=== PATIENT | female | born 1975 | race American Indian/Alaskan Native ===

== ENCOUNTER 2018-02-07 14:10 | Outpatient (CLI) | payer OTHER ==
--- NOTE | 2018-02-07 16:34 | Mammography Report ---
BILATERAL DIGITAL SCREENING MAMMOGRAM WITH CAD:02/07/18 CLINICAL: Baseline screening. FINDINGS: The breasts are extremely dense which limits the sensitivity of mammography.No mass, architectural distortion or suspicious calcifications. IMPRESSION: No mammographic evidence of malignancy. BI-RADS CATEGORY: 1 -- Negative RECOMMENDATION: Routine mammographic screening in one year. ACR BI-RADS MAMMOGRAPHIC CODES: 0 = Needs additional imaging evaluation; 1 = Negative; 2 = Benign; 3 = Probably benign; 4 = Suspicious; 5 = Malignant; 6 = Known biopsy-proven malignancy COMMENT: 1. Dense breast tissue, i.e., adenosis, fibrocystic changes, etc., may obscure an underlying neoplasm. 2. Approximately 10% of cancers are not detected with mammography. 3. A negative mammography report should not delay biopsy if a clinically suspicious mass is present.
== END 2018-02-07 14:11 | disposition home or self-care (01) ==
LOC: SPVWC 14:10
PROVIDERS: ATTEND Obstetrics & Gynecology
DX: Z12.31 Encounter for screening mammogram for malignant neoplasm of breast (principal)
CPT/HCPCS: 77067

== ENCOUNTER 2019-04-10 23:26 | Outpatient (CLI) | payer OTHER ==
[2019-04-11] MEDS ORDERED: LACTATED RINGERS 1,000 ML IV ONE (00:36)
[2019-04-11 01:01] LABS: Bacteria,Urine 1+ /HPF (Negative); Bilirubin,Urine NEG (Negative); Blood,Urine NEG (Negative); Color,Urine Yellow (Yellow); Mucus,Urine FEW /HPF; Protein,Urine <15 mg/dL mg/dL (Negative); Urobilinogen,Urine < 2.0 mg/dL (<2.0)
[2019-04-11 02:48] VITALS: BP 133/74
== END 2019-04-11 03:15 | disposition home or self-care (01) ==
LOC: TRG 23:26
PROVIDERS: ATTEND Obstetrics & Gynecology
DX: O26.852 Spotting complicating pregnancy, second trimester (principal); Z3A.26 26 weeks gestation of pregnancy
CPT/HCPCS: 81001; 86850; 86900; 86901

== ENCOUNTER 2019-05-28 16:24 | Outpatient (CLI) | payer OTHER ==
--- NOTE | 2019-05-28 18:02 | Magnetic Resonance Report ---
MRI PELVIS WITHOUT CONTRAST INDICATION / CLINICAL INFORMATION: PLACENTIA PREVIA, R/O INVASIVE PLACENTATION. TECHNIQUE: Multiplanar, multisequence series were obtained through the pelvis. COMPARISON: None available. FINDINGS: PLACENTA AND UTERUS EVALUATION: There is a placenta previa that appears to completely or almost compl etely cover the internal os. The placenta is mostly anterior and left lateral. Along the left side of the cervix and lower uterine segment, I am concerned that the placenta is mild ly invading the junctional zone suggesting mild placenta accreta (the finding is not definite due to motion artifact). Specifically, reference images 23 through 28 of sagittal series #10. The study was not optimized for evaluation of the structures there are no gross abnormalities v isualized in the fetus. URINARY BLADDER: No significant abnormality. ADDITIONAL FINDINGS: There is mild dilation of the right renal collecting system and right ureter. SKELETAL SYSTEM: No significant abnormality. IMPRESSION: 1. Near complete or complete placenta previa with possible mild placenta accreta along the left lower uterine segment as described. 2. No gross abnormality of the fetus. Signer Name: Jesus Martinez MD Signed: 05/28/2019 5:58 PM Workstation Name: [id number]
== END 2019-05-28 16:25 | disposition home or self-care (01) ==
LOC: MRI 16:24
PROVIDERS: ATTEND Obstetrics & Gynecology Maternal & Fetal Medicine
DX: O44.03 Complete placenta previa NOS or without hemorrhage, third trimester (principal); Z3A.33 33 weeks gestation of pregnancy
CPT/HCPCS: 72195

== ENCOUNTER 2019-05-31 12:13 | Outpatient (CLI) | payer OTHER ==
[2019-05-31] MEDS ORDERED: BETAMET ACET/BETAMET NA PH 6 MG/ML INJ 5 ML MDV IM ONE (12:19)
== END 2019-05-31 12:30 | disposition home or self-care (01) ==
LOC: TRG 12:13
PROVIDERS: ATTEND Obstetrics & Gynecology
DX: O47.03 False labor before 37 completed weeks of gestation, third trimester (principal); O09.523 Supervision of elderly multigravida, third trimester; Z3A.34 34 weeks gestation of pregnancy
CPT/HCPCS: 96372; J0702

== ENCOUNTER 2019-06-01 12:22 | Outpatient (CLI) | payer OTHER ==
[2019-06-01] MEDS ORDERED: BETAMET ACET/BETAMET NA PH 6 MG/ML INJ 5 ML MDV IM SCH (12:45)
== END 2019-06-01 13:01 | disposition home or self-care (01) ==
LOC: TRG 12:22
PROVIDERS: ATTEND Obstetrics & Gynecology
DX: O47.03 False labor before 37 completed weeks of gestation, third trimester (principal); O09.523 Supervision of elderly multigravida, third trimester; Z3A.34 34 weeks gestation of pregnancy
CPT/HCPCS: 96372; J0702

== ENCOUNTER 2019-06-02 05:24 | Inpatient (IN) | payer OTHER ==
--- NOTE | 2019-06-01 16:29 | History and Physical Report ---
History of Present Illness Date of examination: 06/01/19 Date of admission: 06/02/19 Chief complaint: here for c/s History of present illness: Pt here for pre op for scheduled c/s at 35 wks due to previous myomectomy, having placena previa and possible mild accreta as per MRI done yesterday at [facility]. Pt advised of risk of this surgery including but not limited to bleeding, need for transfusion, infection, need for removal of the uterus, injury to the bladder, bowel ovaries, injury to the baby with delivery. All risk/benefits/alternatives were d/w pt and questions were addressed and answered. Consents signed and given to pt to bring with her to the hospital at the time of the delivery. Pre op instructions were also given. Today pt report good movement. No contractions and no vaginal bleeding. 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 Infection History Hx of STD: none Varicella/Chicken Pox Status: Previous Disease Genetic History ADVANCED MATERNAL AGE Congenital Heart Defect: Mom: no Dad: no Presley Disease: Mom: no Dad: no Thalassemia Mom: no Dad: no Neural Tube Defect Mom: no Dad: no Down's Syndrome Mom: no Dad: no Chaim-Sachs Mom: no Dad: no Sickle Cell Disease/Trait Mom: no Dad: no Hemophilia Mom: no Dad: no Muscular Dystrophy Mom: no Dad: no Cystic Fibrosis Mom: no Dad: no Lamb Chorea Mom: no Dad: no Mental Retardation Mom: no Dad: no Fragile X Mom: no Dad: no Other Genetic/Chromosomal Disorder Mom: no Dad: no Child w/other defect Mom: no Dad: no Enviromental Exposures Xray Exposure: no Medication, drug, or alcohol use since LMP: no Chemical/Other Exposure: no Exposure to Cat Liter: no Hx of Parvovirus (Fifth Disease): no Occupational Exposure to Children: none Current Allergies (reviewed today): No known allergies Past History Past Medical History: no pertinent history Past Surgical History: myomectomy 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 History: abnormal PAP smear Family/Genetic History: other (see hpi) Social history: no significant social history - Obstetrical History Expected Date of Delivery: 07/07/19 Actual Gestation: 34 Week(s) 6 Day(s) : 1 Medications and Allergies Allergies Allergy/AdvReac Type Severity Reaction Status Date / Time No Known Allergies Allergy Verified 06/01/19 12:38 Home Medications Medication Instructions Recorded Confirmed Last Taken Type Ferrous Sulfate [Feosol 325 MG tab] 325 mg PO BID #60 tablet 06/08/16 Unknown Rx Ibuprofen [Motrin 800 MG tab] 800 mg PO Q6H PRN #30 tablet 06/08/16 Unknown Rx oxyCODONE /ACETAMINOPHEN [Percocet 1 - 2 tab PO Q4H PRN #30 tablet 06/08/16 Unknown Rx 5/325 mg] Active Meds: Active Medications Lactated Ringer's (Lactated Ringers) 1,000 mls @ 250 mls/hr IV DIRECT CARMEN Review of Systems All systems: negative - Physical Exam Cardiovascular: Normal S1, Normal S2 Lungs: Positive: Clear to auscultation, Normal air movement Abdomen: Positive: normal appearance, soft, normal bowel sounds. Negative: distention, tenderness, guarding Genitourinary (Female): Positive: normal external genitalia, normal perenium Extremities: Positive: normal Deep Tendon Reflex Grade: Normal +2 - Obstetrical FHR: auscultation normal Results All other labs normal. Assessment and Plan - Patient Problems (1) 35 weeks gestation of Status: Acute (2) AMA (advanced maternal age) multigravida 35+ Status: Acute Qualifiers: Trimester: third trimester Qualified Code(s): O09.523 - Supervision of elderly multigravida, third trimester (3) Placenta previa affecting delivery Status: Acute Plan to address problem: -prepare for c/s delivery -all risk, benefits and alternatives d/w pt -consents signed and placed on the chart. (4) Placenta accreta affecting delivery Status: Acute Plan to address problem: -prepare for c/s delivery -all risk, benefits and alternatives d/w pt -consents signed and placed on the chart. (5) Status post myomectomy Status: Acute Plan to address problem: -prepare for c/s delivery -all risk, benefits and alternatives d/w pt -consents signed and placed on the chart.
[~2019-06-02 05:24] MED LIST: BICITRA ORAL LIQD 30ML PO ONE; FAMOTIDINE 20 MG/2 ML INJ IV ONE; LACTATED RINGERS 1,000 ML IV SCH; METOCLOPRAMIDE 10 MG/2 ML INJ IV ONE; OXYTOCIN 20 UNIT/1000ML DRIP 20 UNITS/1,000 ML BAG IV SCH; ceFAZolin/Water 2 GM/20 ML 2 GM/20 ML SYRINGE IV NR
[2019-06-02 06:39] LABS: Hematocrit 32.1 % (30.3-42.9); Hemoglobin 11.3 gm/dl (10.1-14.3); Mean Corpuscular HGB Conc 35 % (30-34); Mean Corpuscular Volume 101 fl (79-97); Platelet Count 208 K/mm3 (140-440); Red Blood Count 3.18 M/mm3 (3.65-5.03); Red Cell Distribution Width 14.2 % (13.2-15.2)
[2019-06-02] MEDS ORDERED: PROMETHAZINE 25 MG TAB PO PRN (07:27)
[2019-06-02] MEDS ORDERED: PROMETHAZINE 25 MG RECT SUPP PR PRN (07:27)
[2019-06-02] MEDS ORDERED: NALOXONE 0.4 MG/1 ML INJ IV PRN ×2 (07:27→13:28)
[2019-06-02] MEDS ORDERED: ONDANSETRON 4 MG/2 ML INJ IV PRN (07:27)
--- NOTE | 2019-06-02 07:27 | Anesthesia Consultation ---
Anesthesia Consult and Med Hx Date of service: 06/02/19 - Airway Anesthetic Teeth Evaluation: Good ROM Head & Neck: Adequate Mental/Hyoid Distance: Adequate Mallampati Class: Class II Intubation Access Assessment: Probably Good - Pre-Operative Health Status ASA Pre-Surgery Classification: ASA2 Proposed Anesthetic Plan: General (possible in case of hysterectomy), Epidural, Spinal - Pulmonary Hx Smoking: No Hx Asthma: No COPD: No Hx Pneumonia: No Hx Sleep Apnea: No - Cardiovascular System Hx Hypertension: No - Central Nervous System Hx Seizures: No Hx Psychiatric Problems: No - Gastrointestinal Hx Gastroesophageal Reflux Disease: No - Endocrine Hx Renal Disease: No Hx Hypothyroidism: No Hx Hyperthyroidism: No - Hematic Hx Anemia: No Hx Sickle Cell Disease: No - Other Systems Hx Alcohol Use: Yes (occas) Hx Cancer: No - Additional Comments Anesthesia Medical History Comments: , s/p myomectomy, suspected placenta accreta
--- NOTE | 2019-06-02 07:27 | Anesthesia Day of Surgery ---
Anesthesia Day of Surgery - Day of Surgery Patient Examined: Yes Patient H&P Reviewed: Yes Patient is NPO: Yes
[2019-06-02] MEDS ORDERED: FAMOTIDINE 20 MG/2 ML INJ IV NR (09:00)
[2019-06-02] MEDS ORDERED: BICITRA ORAL LIQD 30ML PO NR (09:00)
[2019-06-02] MEDS ORDERED: METOCLOPRAMIDE 10 MG/2 ML INJ IV NR (09:00)
[2019-06-02] MEDS ORDERED: CARBOPROST TROMETHAMINE 250 MCG/1 ML INJ IM ONE ×2 (10:05→11:37)
[2019-06-02] MEDS ORDERED: METHYLERGONOVINE MALEATE 0.2 MG/ML VIAL IM ONE ×2 (10:06→11:37)
[2019-06-02] MEDS ORDERED: miSOPROStol 200 MCG TAB ONE (10:06)
[2019-06-02] MEDS ORDERED: DEXMEDETOMIDINE 200 MCG/2 ML VIAL IV ONE (10:19)
[2019-06-02] MEDS ORDERED: PHENYLEPHRINE/NS 1,000 MCG/10 ML SYRINGE (OR USE) IV ONE (10:47)
[2019-06-02] MEDS ORDERED: CITRIC ACID-SOD CITRATE 500 ML IV ONE (10:52)
[2019-06-02] MEDS ORDERED: SODIUM CHLORIDE 0.9% IRR 1,500 ML BOTTLE IR ONE (11:04)
[2019-06-02] MEDS ORDERED: DIPHENOXYLATE/ATROPINE TAB ONE (11:24)
[2019-06-02] MEDS ORDERED: DIPHENOXYLATE/ATROPINE TAB PO PRN (11:36)
[2019-06-02] MEDS ORDERED: OXYTOCIN 10 UNIT/1 ML INJ ONE ×2 (11:55)
[2019-06-02] MEDS ORDERED: SODIUM CHLORIDE 0.9% 1000 ML 1,000 ML ONE (11:55)
[2019-06-02] MEDS ORDERED: HYDROmorphone 1 MG/1 ML INJ ONE ×2 (12:18→13:58)
[2019-06-02] MEDS ORDERED: CITRIC ACID-SOD CITRATE SOLN 500 ML IV SOLN IV ONE (12:31)
[2019-06-02] MEDS ORDERED: LIDOCAINE MPF (2%) 20 MG/1 ML VIAL 5 ML ONE (13:02)
--- NOTE | 2019-06-02 13:26 | Operative Report ---
Operative Report Operative Report: Date of procedure: 01/30/2019 Pre-operative diagnosis: 35 weeks gestation Advanced maternal age Placenta previa Placenta accreta Previous myomectomy requiring delivery by section Polyhydramnios breech presentation Post-operative diagnosis: Same plus hemorrhage Procedure name(s): Primary classical section via Pfannenstiel skin incision Surgeon: Dr. Mcdonald Wafer Line Worker: Dr. Tamara Vergara Anesthesia: Combined spinal epidural EBL: 1250 mL Urine output: 300 mL of clear urine out at the end of procedure Fluids: 2 L Cell Saver: 225 mL Findings: Liveborn female weight 5 lbs. 0 oz. Apgars of 5 and 8 at one and 5 minutes footling breech presentation Excessive amount of amniotic fluid Adhesions of the uterus to the anterior abdominal wall Adherent placenta to the left anterior wall of the uterus relieved with blunt dissection Indications: Patient presents for scheduled repeat section at 35 weeks due to placenta previa, placenta accreta, and previous myomectomy. All risks benefits and alternatives were discussed with the patient including but not limited to risk of excessive bleeding requiring blood transfusion, risk of hysterectomy as a life-saving measure, risk of injury to the bladder, uterus, tubes and ovaries, and risk of injury to the baby with delivery. Patient expressed understanding consents were signed and placed on the chart. Procedure: Patient was taking to the operating room. Patient was then prepped and draped in sterile fashion after anesthesia was found to be adequate. A low transverse skin incision was made with the scalpel and carried down to the underlying layer of fascia with the Bovie. The fascia was then incised in the midline and this incision was extended bilaterally with the Bovie. The superior aspect of the fascia was grasped with Natalie clamps tented upward and dissected off of the anterior rectus muscles with the scalpel. In similar fashion the inferior aspect of the fascia was grasped with Natalie clamps tented upward and dissected off of the anterior rectus muscles. The rectus muscles were then sharply divided in the midline. The peritoneum was identified and entered into sharply. The bladder blade was placed. The Hesham retractor was placed The bladder flap was created using the Metzenbaum scissors. The bladder blade was replaced. A lower vertical uterine incision was made with the scalpel and extended superiorly with the scalpel scissors. Artificial rupture of membranes was performed yielding clear amniotic fluid. The anterior placenta was noted. The 's feet were then delivered atraumatically. The remainder of the was then delivered via normal breech extraction. The umbilical cord was clamped x2. The cord was cut. The infant was then placed in sterile bassinet. The cord blood was collected. The placenta was manually extracted with blunt dissection with some difficulty however appeared to be removed in its entirety in pieces. The uterus was exteriorized and cleared of all clots and debris. The uterine incision was closed in several layers using 0 and 1.0 Vicryl in several [id number] sutures. This was repeated until the uterine incision was completely closed and adequate hemostasis was noted. Elpidio was used along the uterine incision as well as Interceed. The uterus was returned to the abdomen. The gutters were also irrigated. The anterior rectus muscles were reapproximated using 2-0 Vicryl. The anterior rectus fascia was reapproximated using 0 Vicryl in a running fashion. The subcuticular fat was reapproximated using 2-0 Vicryl in a running fashion. The skin was reapproximated with 4-0 Monocryl in a subcuticular stitch. The patient tolerated the procedure well. Sponge lap and needle counts were all correct x3. Patient was taken to the recovery room awake and in stable condition.
[2019-06-02] MEDS ORDERED: WITCH HAZEL/ GLYCERIN PAD TP PRN (13:28)
[2019-06-02] MEDS ORDERED: LANOLIN/ZINC/DIMETHICONE (LANSINOH) 7 GM TP PRN (13:28)
--- NOTE | 2019-06-02 13:47 | Post Anesthesia Evaluation ---
- Post Anesthesia Evaluation Patient Participated: Yes Airway Patent: Yes Stable Respiratory Function: Yes Nausea/Vomiting: No Temp > 96.8F: Yes Pain Manageable: Yes Adequeate Hydration: Yes Anesthesia Complications: No Block Receding Appropriately: Not Applicable Patient on Ventilator: No
[2019-06-02] MEDS: HYDROmorphone 1 MG/1 ML INJ IV PRN ×2 (13:57→14:15)
[2019-06-02] MEDS ORDERED: OXYTOCIN 20 UNIT/1000ML DRIP 20 UNITS/1,000 ML BAG IV SCH (14:00)
[2019-06-02] MEDS ORDERED: D5W/LACTATED RINGERS 1,000 ML IV SCH (14:00)
[2019-06-02] MEDS ORDERED: D5W/LACTATED RINGERS 1,000 ML IV ONE (14:07)
[2019-06-02] MEDS: ceFAZolin/NS 1 GM/50 ML 1 GM/50 ML BAG IV SCH (16:52)
[2019-06-02] MEDS: KETOROLAC 30 MG/1 ML INJ IV PRN (16:53)
[2019-06-02] MEDS: HYDROcodone/ACETAMINOPHEN 5-325 MG TAB PO PRN (21:33)
[2019-06-03] MEDS: KETOROLAC 30 MG/1 ML INJ IV PRN (00:36)
[2019-06-03 01:19] LABS: Hematocrit 31.4 % (30.3-42.9); Hemoglobin 10.8 gm/dl (10.1-14.3)
[2019-06-03] MEDS: ceFAZolin/NS 1 GM/50 ML 1 GM/50 ML BAG IV SCH (05:30)
[2019-06-03] MEDS: HYDROcodone/ACETAMINOPHEN 5-325 MG TAB PO PRN ×3 (06:55→20:36)
--- NOTE | 2019-06-03 08:06 | Progress Note ---
Assessment and Plan - Patient Problems (1) delivery delivered Onset Date: ~06/02/19 Current Visit: Yes Status: Acute Plan to address problem: Pt without complaints, ambulating in room, vss, ff below one, H/H 05/07, stable. S/p stable P: continue pathway advance diet and activity as tolerated Subjective - Subjective Date of service: 06/03/19 (OOB ambulating in room) Principal diagnosis: Day #1 S/P primary Patient reports: appetite normal, voiding normally, pain well controlled, ambulating normally [place]: doing well Objective - Vital Signs Latest vital signs: Vital Signs Temp Pulse Resp BP BP Pulse Ox 06/03/19 02:40 98.9 F 88 20 121/77 98 06/02/19 20:50 98.4 F 06/02/19 20:47 76 18 119/65 98 06/02/19 16:00 97.8 F 81 18 131/78 99 06/02/19 15:12 97.7 F 81 20 123/56 97 06/02/19 15:00 97.7 F 82 20 123/56 99 06/02/19 14:30 99.9 F H 82 14 118/52 99 06/02/19 14:15 84 16 108/45 99 06/02/19 14:00 73 16 117/65 100 06/02/19 13:57 18 06/02/19 13:30 68 21 125/78 100 06/02/19 13:25 68 19 129/72 100 06/02/19 13:20 66 16 127/79 100 06/02/19 13:15 97.4 F L 71 16 133/81 100 06/02/19 09:56 97.8 F 78 20 107/50 107/50 98 06/02/19 09:55 108 H 99 06/02/19 08:45 90 99 06/02/19 08:40 175 H 100 06/02/19 08:35 87 99 06/02/19 08:30 99 H 99 06/02/19 08:25 95 H 99 06/02/19 08:20 89 100 06/02/19 08:15 93 H 98 06/02/19 08:10 90 99 06/02/19 08:05 91 H 98 Intake and Output 06/02/19 06/03/19 06/03/19 22:59 06:59 14:59 Intake Total 480 1290 Output Total 300 1000 Balance 180 290 Intake: IV 1050 ANCEF/NS 1 GM/50 ML 1 gm 50 In 50 ml @ 100 mls/hr IV Q8H CARMEN Rx#:[id number] D5lr 1,000 ml @ 125 mls/ 1000 hr IV DIRECT CARMEN Rx#: [id number] Oral 240 Intake, Free Water 480 Output: Urine 300 1000 Indwelling Catheter 300 800 Void 200 Other: Total, Intake Amount 240 Total, Output Amount 300 100 - Exam Breasts: Present: normal Cardiovascular: Present: Regular rate Lungs: Present: Normal air movement Abdomen: Present: normal appearance, soft Vulva: both: normal Uterus: Present: firm, fundal height below umbilicus Extremities: Present: normal Deep Tendon Reflex Grade: Normal +2 Incision: Present: normal, dry, intact - Labs Labs: Abnormal lab results 06/02/19 Range/Units 06:20 Crossmatch See Detail
[2019-06-03] MEDS: IBUPROFEN 800 MG TAB PO PRN ×2 (10:10→18:05)
--- NOTE | 2019-06-03 10:23 | Progress Note ---
Subjective Date of service: 06/03/19 Principal diagnosis: Day #1 S/P primary Interval history: 1st POD Patient is active, ambulates well. No residual neurological deficit. Pain is well under control with pain meds. No anesthesia complications Objective - Constitutional Vitals: Vital Signs - 12hr 06/03/19 06/03/19 06/03/19 02:40 06:44 09:00 Temperature 98.9 F 98.8 F 97.9 F Pulse Rate 88 98 H 101 H Respiratory 20 20 18 Rate Blood Pressure 121/77 111/64 Blood Pressure 113/59 [Right] O2 Sat by Pulse 98 97 98 Oximetry - Labs CBC & Chem 7: 06/03/19 01:02 Labs: Abnormal lab results 06/02/19 Range/Units 06:20 Crossmatch See Detail
[2019-06-04] MEDS: IBUPROFEN 800 MG TAB PO PRN ×2 (01:00→12:50)
[2019-06-04] MEDS: HYDROcodone/ACETAMINOPHEN 5-325 MG TAB PO PRN ×2 (06:50→16:44)
--- NOTE | 2019-06-04 10:02 | Discharge Summary ---
Providers - Providers Date of Admission: 06/02/19 05:24 Date of discharge: 06/04/19 Attending physician: ABIGAIL VAZQUEZ Primary care physician: ABIGAIL VAZQUEZ Hospitalization Reason for admission: IUP - , section Delivery: Incision: normal, dry, intact Other procedures: none complications: none Discharge diagnosis: delivery baby: female Hospital course: See patient's history and physical Patient was admitted and underwent above procedure without complications. Postoperative course was benign. Patient was afebrile throughout her hospital stay. At time of discharge patient tolerating regular diet and has voided without any difficulty. Patient postop day 1 hematocrit was 31%. Patient is bottle and breast-feeding and desires oral contraceptives for control. Patient desires discharge today Condition at discharge: Good Disposition: DC-01 TO HOME OR SELFCARE Plan - Discharge Medications Prescriptions: Docusate Sodium [Colace] 100 mg PO BID PRN #60 capsule PRN Reason: Constipation Ferrous Sulfate [Feosol 325 MG tab] 325 mg PO QDAY #60 tablet Ibuprofen [Motrin 800 MG tab] 800 mg PO Q8HR PRN #30 tablet PRN Reason: Pain, Moderate (4-6) oxyCODONE /ACETAMINOPHEN [Percocet 5/325] 1 tab PO Q4HR #30 tab - Provider Discharge Summary Activity: routine, no sex for 6 weeks, no heavy lifting 4 weeks, no strenuous exercise Diet: routine Instructions: routine Additional instructions: [] Smoking cessation referral if applicable(refer to patient education folder for contact #) [] Refer to [facility]'s [facility] Booklet Call your doctor immediately for: * Fever > 100.5 * Heavy vaginal bleeding ( >1 pad per hour) * Severe persistent headache * Shortness of breath * Reddened, hot, painful area to leg or breast * Drainage or odor from incision. * Keep incision clean and dry at all times and follow doctor's instructions regarding bathing/showering - Follow up plan Follow up: ABIGAIL VAZQUEZ MD [Primary Care Provider] - 7 Days
[2019-06-04 16:23] VITALS: BP 145/80
== END 2019-06-04 17:20 | disposition home or self-care (01) | DRG 786 ==
LOC: APU 05:24 → OB 14:17
PROVIDERS: ADMIT Obstetrics & Gynecology; ATTEND Obstetrics & Gynecology
PROC: 10D00Z0 Extraction of Products of Conception, High, Open Approach (ICD-10-PCS; principal; 2019-06-02)
DX: O32.1XX0 Maternal care for breech presentation, not applicable or unspecified (principal); O60.14X0 Preterm labor third trimester with preterm delivery third trimester, not applicable or unspecified; O44.03 Complete placenta previa NOS or without hemorrhage, third trimester; O99.314 Alcohol use complicating childbirth; O43.213 Placenta accreta, third trimester; O40.3XX0 Polyhydramnios, third trimester, not applicable or unspecified; Z37.0 Single live birth
CPT/HCPCS: 36415; 85014; 85018; 85027; 86850; 86900; 86901; 86920; 88307; G0378; C1765; J0690; J1170; J1885; J2210; J2370; J2590; J2765; J3490; J7030; J7120; J7121

== ENCOUNTER 2020-03-10 14:38 | Outpatient (CLI) | payer OTHER ==
--- NOTE | 2020-03-11 16:22 | Mammography Report ---
DIGITAL SCREENING MAMMOGRAM WITH CAD, 03/10/2020 INDICATION: Routine screening mammography. TECHNIQUE: Digital bilateral 2D mammography was obtained in the craniocaudal and mediolateral obliq ue projections. This examination was interpreted with the benefit of Computer-Aided Detection analysi s. COMPARISON: 02/07/2018 FINDINGS: Breast Density: The breasts are heterogeneously dense, which may obscure small masses. There is no evidence of dominant mass, suspicious calcifications or architectural distortion in eithe r breast. IMPRESSION: Follow up recommendation: Routine yearly BI-RADS Category 1: Negative. A "normal" or negative report should not discourage follow up or biopsy of a clinically significant f inding. A written summary of these findings will be mailed to the patient. The patient will be entered into a mammography reporting system which will generate a reminder letter for the patient's next appointmen t at the appropriate interval. The [employer] recommends yearly mammograms starting at age 40 and continuing as l behzad as a woman is in good health. Breast MRI is recommended for women with an approximate 20-25% or greater lifetime risk of breast cancer, including women with a strong family history of breast or ova mukul cancer or who have been treated for Hodgkin's disease. Signer Name: Kurt Nicholson MD Signed: 03/11/2020 4:18 PM Workstation Name: [id number]
== END 2020-03-10 14:39 | disposition home or self-care (01) ==
LOC: SPVWC 14:38
PROVIDERS: ATTEND Obstetrics & Gynecology
DX: Z12.31 Encounter for screening mammogram for malignant neoplasm of breast (principal)
CPT/HCPCS: 77067

== ENCOUNTER 2021-03-17 15:17 | Outpatient (CLI) | payer OTHER ==
--- NOTE | 2021-03-17 18:09 | Mammography Report ---
DIGITAL SCREENING MAMMOGRAM WITH CAD, 03/17/2021 CLINICAL INFORMATION / INDICATION: Routine screening mammography. TECHNIQUE: Digital bilateral 2D mammography was obtained in the craniocaudal and mediolateral obliqu e projections. This examination was interpreted with the benefit of Computer-Aided Detection analysis . COMPARISON: 03/10/2020, 02/07/2018 FINDINGS: Breast Density: The breasts are heterogeneously dense, which may obscure small masses. No dominant mass, suspicious calcifications, or architectural distortion in either breast. IMPRESSION: No mammographic evidence of malignancy. Follow up recommendation: Routine yearly BI-RADS Category 1: Negative. A "normal" or negative report should not discourage follow up or biopsy of a clinically significant f inding. A written summary of these findings will be mailed to the patient. The patient will be entered into a mammography reporting system which will generate a reminder letter for the patient's next appointmen t at the appropriate interval. The [employer] recommends yearly mammograms starting at age 40 and continuing as l behzad as a woman is in good health. Breast MRI is recommended for women with an approximate 20-25% or greater lifetime risk of breast cancer, including women with a strong family history of breast or ova mukul cancer or who have been treated for Hodgkin's disease. Signer Name: Leila Mendez MD Signed: 03/17/2021 6:04 PM Workstation Name: [id number]
== END 2021-03-17 15:18 | disposition home or self-care (01) ==
LOC: SPVWC 15:17
PROVIDERS: ATTEND Obstetrics & Gynecology
DX: Z12.31 Encounter for screening mammogram for malignant neoplasm of breast (principal)
CPT/HCPCS: 77067

== ENCOUNTER 2022-04-04 15:50 | Outpatient (CLI) | payer BC, OTHER ==
--- NOTE | 2022-04-06 15:03 | Mammography Report ---
DIGITAL SCREENING MAMMOGRAM WITH CAD, 04/04/2022 CLINICAL INFORMATION / INDICATION: Routine screening mammography. TECHNIQUE: Digital bilateral 2D mammography was obtained in the craniocaudal and mediolateral oblique projections. This examination was interpreted with the benefit of Computer-Aided Detection analysis. COMPARISON: 02/07/2018 through 03/17/2021. FINDINGS: Breast Density: The breasts are extremely dense, which lowers the sensitivity of mammography. No dominant mass, suspicious calcifications, or architectural distortion in either breast. IMPRESSION: No mammographic evidence of malignancy. Follow up recommendation: Routine yearly screening mammogram. BI-RADS Category 1: NEGATIVE A "normal" or negative report should not discourage follow up or biopsy of a clinically significant f inding. A written summary of these findings will be mailed to the patient. The patient will be entered into a mammography reporting system which will generate a reminder letter for the patient's next appointmen t at the appropriate interval. The [employer] recommends yearly mammograms starting at age 40 and continuing as l behzad as a woman is in good health. Breast MRI is recommended for women with an approximate 20-25% or greater lifetime risk of breast cancer, including women with a strong family history of breast or ova mukul cancer or who have been treated for Hodgkin's disease. Signer Name: Shahram Marquez MD Signed: 04/06/2022 2:59 PM Workstation Name: [id number]
== END 2022-04-04 15:51 | disposition home or self-care (01) ==
LOC: SPVWC 15:50
PROVIDERS: ATTEND Obstetrics & Gynecology
DX: Z12.31 Encounter for screening mammogram for malignant neoplasm of breast (principal)
CPT/HCPCS: 77067